=== PATIENT | male | born 1970 | race Caucasian/White ===

== ENCOUNTER → 2020-11-12 | Outpatient (CLI) | payer OTHER ==
--- NOTE | 2020-11-13 14:44 | KCIC ---
EXAMINATION: XR SHOULDER_LEFT 2+ VIEWS CLINICAL HISTORY: Chronic left shoulder pain, no known injury TECHNIQUE: XR SHOULDER_LEFT 2+ VIEWS Number of Images/Views: 3 COMPARISON: None FINDINGS: Glenohumeral joint alignment maintained. Mild hypertrophic acromioclavicular degenerative changes. No acute fracture. Acromiohumeral interval maintained. Presumed surgical material projected over the hollingsworth perior mediastinum. IMPRESSION: Mild left acromioclavicular degenerative changes. Electronically signed by: Lex Vieyra DO (11/13/2020 2:42 PM) JACKIE
== END ==
LOC: KCIC 15:54
PROVIDERS: ATTEND Family Medicine
DX: M19.012 Primary osteoarthritis, left shoulder (principal); G89.29 Other chronic pain
CPT/HCPCS: 73030

== ENCOUNTER 2021-06-13 06:47 | Day surgery (SDC) | payer OTHER ==
[~2021-06-13] VITALS: Ht 177.8 cm; Wt 70.0 kg
[~2021-06-13 06:47] MED LIST: HYDROmorphone 2 MG/ML VIAL IVP PRN; IV RINGERS,LACTATED 1000ML 1,000 ML IV SCH; MORPHINE SULFATE 2 MG/ML INJ. IVP PRN; PROCHLORPERAZINE 10 MG/2 ML VIAL. IVP PRN; PROPOFOL 10 MG/ML (20ML) VIAL. IV ONE; ceFAZolin SODIUM IV Push 1 GM VIAL. IVP PRN; fentaNYL PF VIAL 100 MCG/2 ML VIAL IVP PRN; fentaNYL PF VIAL 100 MCG/2 ML VIAL ONE
[2021-06-13] MEDS ORDERED: CYCL10TA19 PO (07:08)
[2021-06-13] MEDS ORDERED: CELE200C PO (07:08)
[2021-06-13 07:09] VITALS: BP 123/69
[2021-06-13] MEDS ORDERED: HYDR-3068 PO (07:57)
[2021-06-13] MEDS ORDERED: BUPIVACAINE MPF 0.25% 30 ML VIAL. ONE (08:04)
[2021-06-13] MEDS ORDERED: MIDAZOLAM HCL/PF 2 MG/2 ML VIAL. ONE (08:06)
--- NOTE | 2021-06-13 08:16 | DISCH ---
DISCHARGE INSTRUCTIONS Condition on Discharge Condition on Discharge: Stable Activity After Discharge Activity Instructions for Disc: Avoid exertion Driving Instructions after Dis: Do not drive today, No driving for 2 weeks Wound Incision Care Wound/Incision Care: Ice to area for comfort, Do not change dressing Follow-Up Follow up with: 10 to 14 days TREV MCCAIN Jr. DO Jun 13, 2021 08:16
[2021-06-13] MEDS ORDERED: ePHEDrine PF IN SALINE 50 MG/10 ML SYRINGE. IV ONE (08:47)
[2021-06-13] MEDS ORDERED: ONDANSETRON PF 4 MG/2 ML VIAL. ONE (08:47)
[2021-06-13] MEDS ORDERED: DEXAMETHASONE SOD PHOS 4 MG/ML VIAL ONE (08:47)
--- NOTE | 2021-06-13 08:56 | PDOC4 ---
OPERATIVE NOTE Date: Date: Jun 13, 2021 Pre-Op Diagnosis: Cubital tunnel syndrome right de Quervain's right Post-Op Diagnosis: Same, ganglion cyst right wrist Procedure Performed: Release first dorsal compartment right wrist Ulnar nerve transposition after decompression right Excision ganglion cyst right wrist Surgeon: Jonathan Anesthesia Type: General Blood Loss: 10 cc total Specimans Obtained: Ganglion cyst Findings: See dictation Complications: None TREV MCCAIN Jr. DO Jun 13, 2021 08:56
[2021-06-13] MEDS ORDERED: fentaNYL PF VIAL 100 MCG/2 ML VIAL ONE (09:17)
--- NOTE | 2021-06-13 09:20 | OP ---
DATE OF SURGERY: 06/13/2021 PREOPERATIVE DIAGNOSIS: Cubital tunnel syndrome, right and de Quervain's, right. POSTOPERATIVE DIAGNOSIS: Cubital tunnel syndrome, right and de Quervain's, right. PROCEDURES: First dorsal compartment release, right wrist and ulnar nerve decompression with ulnar nerve transposition, right. SURGEON: Bg Castillo Jr, DO. MEDICAL TRANSCRIPTION SUPERVISOR: Galdino Lopez. ANESTHESIA: General. COMPLICATIONS: None. ESTIMATED BLOOD LOSS: 10 mL. DESCRIPTION OF PROCEDURE: The patient was taken to the operative suite, given a general anesthetic. Right upper extremity was then prepped and draped in sterile fashion. Incision was made through skin and subcutaneous tissues directly over the area of the first dorsal compartment. This was carefully taken down to isolate the superficial sensory branches, which were identified, protected and retracted. The first dorsal compartment was then released. This was noted to be completely released. There was no secondary bands along the area between the abductor pollicis and extensor pollicis brevis. Therefore, this was thoroughly irrigated. The tendons looked very good. Therefore, superficial tissue and skin was reapproximated. Incision was made directly over the area of the path of the ulnar nerve. This was dissected out very carefully. As it was taken proximally and distally, ulnar nerve was identified just proximal to the medial epicondyle and was released. This was tight proximal to this area as well as slightly distal; however, the ulnar nerve was very carefully mobilized and after attachments from soft tissue were removed, a small fascial band was made from the flexor fascia with this held completely intact along the area of the medial epicondyle. The ulnar nerve was then transposed anteriorly and then the fascial slip was then reapproximated to the subcutaneous tissues on the anterior flap of the skin incision site. This was noted to be good and stable. The ulnar nerve was not able to be removed from that area with flexion and extension of the elbow. Therefore, superficial tissues and skin was reapproximated. The local was placed within both sites of incisions. Sterile dressing was applied along with a posterior splint. Tourniquet was deflated with good return of pulses and capillary refill. The patient was then taken from the operative bed to the postoperative bed, taken to the PACU in stable condition. HERMINIA DR: Rikki TID: [id number]
[2021-06-13] MEDS: fentaNYL PF VIAL 100 MCG/2 ML VIAL IVP PRN ×2 (09:23→09:35)
[2021-06-13] MEDS ORDERED: HYDROcodone/APAP 5/325MG 1 TAB TABLET PO ONE (09:45)
[2021-06-13 10:05] VITALS: BP 126/62
--- NOTE | 2021-06-18 14:49 | PREOP HP ---
DATE OF SERVICE: 06/13/2021 HISTORY OF PRESENT ILLNESS: The patient is here today preoperatively for a de Quervain's release first dorsal compartment as well as an ulnar nerve transposition on the right. PAST MEDICAL HISTORY: Remarkable for spinal stenosis of the lumbar and cervical spine, peptic ulcer disease, history of gastric bypass. PAST SURGICAL HISTORY: Left knee arthroscopy, laparoscopic cholecystectomy and a ventral hernia repair. FAMILY HISTORY: Remarkable for Alzheimer's as well as hypertension and heart disease. SOCIAL HISTORY: The patient has never used tobacco and does not use alcohol other than socially at social events only. MEDICATIONS: Include cyclobenzaprine, tramadol, hydrochloride, suloxin, sildenafil. MEDICATION ALLERGIES: None. PHYSICAL EXAMINATION: He is 71 inches tall, 173 pounds. He has a very positive Tinel's test along the area of the right elbow reproducing the radiculopathy into the ulnar nerve distribution from the area of the elbow only. There is no thenar or hypothenar atrophy, but weakness of validation engineer is noted at this point. There is also pain along the area of the first dorsal compartment with testing. This did not effect range of motion, however. He is alert and oriented x 3. Regular rate and rhythm in regard to his heart. Clear to auscultation in all lee. No other significant abnormalities. Distal neurovascular status intact other than the one listed on the right upper extremity physical exam. IMPRESSION: De Quervain's, right upper extremity and cubital tunnel, right. PLAN: At this time, I have talked with the patient about the diagnosis and the treatment plan. He has failed all conservative therapies at this point. Therefore, we have gone over the risks, complications as well as benefits and expectations of release of the first dorsal compartment as well as ulnar nerve transposition and decompression of the ulnar nerve of the right elbow. All questions were answered. We will proceed with surgery. CHELSEA ALAN: Rikki TID: [id number]
== END 2021-06-13 10:13 | disposition home or self-care (01) ==
LOC: SURG 06:47
PROVIDERS: ATTEND Orthopaedic Surgery
DX: G56.21 Lesion of ulnar nerve, right upper limb (principal); M65.4 Radial styloid tenosynovitis [de Quervain]; M19.90 Unspecified osteoarthritis, unspecified site; Z87.891 Personal history of nicotine dependence; Z79.899 Other long term (current) drug therapy; Z98.890 Other specified postprocedural states; Z88.6 Allergy status to analgesic agent; Z88.8 Allergy status to other drugs, medicaments and biological substances
CPT/HCPCS: 25000; 64718; A4209; A4364; A4930; A6253; A6402; A6450; J0690; J1100; J2250; J2405; J2704; J3010; J3490; A4452; A4657; A6452